=== PATIENT | female | born 1990 | race African-American/Black ===

== ENCOUNTER 2019-02-02 07:33 | Emergency (ER) | payer OTHER ==
[~2019-02-02] VITALS: Ht 165.1 cm; Wt 53.1 kg
[2019-02-02 07:42] VITALS: BP 122/77; Ht 165.1 cm; Wt 53.1 kg
== END 2019-02-02 09:05 | disposition home or self-care (01) ==
LOC: ED 07:33
DX: J06.9 Acute upper respiratory infection, unspecified (principal)
CPT/HCPCS: Q0092